=== PATIENT | male | born 1985 | race Caucasian/White ===

== ENCOUNTER 2025-03-16 19:27 | Emergency (ER) | payer BC, SELFPAY ==
[2025-03-16 20:25] VITALS: BP 139/87; PULSE 82; RESP 14; TEMP 36.7; O2SAT 99
[2025-03-16 23:20] VITALS: BP 138/85; PULSE 77; RESP 16; O2SAT 98
[2025-03-16] MEDS: FAMOTIDINE 20 MG TABLET PO (23:23)
[2025-03-16] MEDS: ONDANSETRON HCL ODT 4 MG TABLET PO (23:23)
[2025-03-16] MEDS: MECLIZINE HCL 25 MG TABLET PO (23:23)
[2025-03-16] MEDS: diazePAM INJ (*CRX) 10 MG/2 ML SYRINGE 5 MG IM (23:24)
[2025-03-16] MEDS: Please add drug allergy info to patient profile. 1 EACH XX (23:26)
[2025-03-16 23:29] VITALS: O2SAT 100
[2025-03-16 23:30] VITALS: O2SAT 99
[2025-03-16 23:31] VITALS: BP 122/87; O2SAT 97
[2025-03-16 23:46] VITALS: BP 132/97; O2SAT 96
[2025-03-17] VITALS: PULSE 80; RESP 14; O2SAT 96
[2025-03-17 00:01] VITALS: BP 111/67; PULSE 78; RESP 16; O2SAT 96
[2025-03-17 00:15] VITALS: PULSE 74; RESP 17; O2SAT 97
[2025-03-17 00:16] VITALS: BP 133/88; PULSE 78; RESP 20; O2SAT 96
--- OUTSIDE RECORDS SUMMARY | 2025-03-17 00:31 | XMS_ITS | Encounter Summary ---
Author Organization [facility] Address [facility] [place] [address] Care Team Providers Care Steel Spar Operator Name Role Phone Deana Block MD Primary Care Provider [phone] Encounter Details Date Type Department Care Team ([facility] Contact Info) Description 09/24/2022 Inflection Energyt Message Enc [facility] Medical [facility] Multispecialty Care - [address] [place], [place] [id number] Mychart, [facility] Provider Ubrelvy Social History Tobacco Use Types Packs/Day Years Used Date Smoking Tobacco: Never Smokeless Tobacco: Never Comments:Counseled by Dr Jeni escamilla Alcohol Use Standard Drinks/Week Comments Never 0 (1 standard drink = 0.6 oz pur e alcohol) PHQ-2 Answer Date Recorded PHQ-2 Score - If the patient scores above 3, please move on to questions 3-9 0 09/10/2022 Sex and Gender Information Value Date Recorded Sex Assigned at Male 02/22/2025 2:52 PM CDT Legal Sex Male 11:41 AM CDT Gender Identity Male 02/22/2025 2:52 PM CDT Sexual Orientation Choose not to disclose 2024 2:52 PM CDT COVID-19 Exposure Response Date Recorded In the last 10 days, have yo u been in contact with someone who was confirmed or suspected to have Coronavirus/COVID-19? No / Unsure 09/17/2022 10:37 AM INFORMATION TECHNOLOGY PROJECT MANAGER documented as of this encounter Plan of Treatment Upcoming Encounters Date Type Department Care Team ([facility] Contact Info) Description 05/24/2025 8:00 AM CDT Office Visit [facility] Medical Group Multispecialty Care - [place] [address] [place] [address] [address] [place] [address] Deana Block MD [address] [place] [address] documented as of this encounter Visit Diagnoses Not on filedocumented in this encounter Additional Health Concerns Assessment Noted Time PHQ-9 Depression Total Score: 12 022 2:34 PM CDT documented as of this encounter Care Teams Steel Spar Operator Relationship Specialty Start Date End Date Deana Block MD [address] [place] [address] PCP - General INTERNAL MEDICINE 03/23/22 documented as of this encounter
--- OUTSIDE RECORDS SUMMARY | 2025-03-17 00:31 | XMS_ITS | Encounter Summary ---
Author Organization [facility] Healthcare Address [address] [place] [address] Care Team Providers Care Outreach Assistant Name Role Phone Irwin Dominguez MD Primary Care Provider [phone] Reason for Visit * Reason Comments Vomiting Possible ear problem ? Encounter Details Date Type Department Care Team (Late st Contact Info) Description 03/16/2025 9:45 AM CDT Office Visit [facility] Medical Group Convenient Care at [address] [address] Tiffanie Epstein PA [address] [place] [address] [address] [place] [address] Dizziness (Primary Dx) Social History Tobacco Use Types Packs/Day Years Used Date Smoking Tobacco: Never Smokeless Tobacco: Never AUDIT-C Answer Date Recorded Q1: How often do you have a drink containing alc ohol? Never 10/22/2021 Average Number of Drinks Not on file 021 Q3: How often do you have si x or more drinks on one occasion? Never 10/22/2021 Overall Financial Resource Strain (CARDIA) Answe r Date Recorded How hard is it for you to pa y for the very basics like food, housing, medical care, and heating? Not hard at all 10/22/2021 PHQ-2 Answer Date Recorded PHQ-2 Total Score (If total score is 3 or more points, staff should administer the PHQ-9) 2 10/22/2021 Exercise Vital Sign Answer Date Recorde d On average, how many days pe r week do you engage in moderate to strenuous exercise (like a brisk walk)? 0 days Minutes of Exercise per Session Not on file 10/22/2021 Sex and Gender Information Value Date Recorded Sex Assigned at Not on file Legal Sex Male 8:49 PM FORENSIC PHOTOGRAPHER Gender Identity Not on file Sexual Orientation Not on file documented as of this encounter Last Filed Vital Signs Vital Sign Reading Time Taken Comments Blood Pressure 119/83 03/16/2025 9:39 AM CDT Pulse 68 03/16/2025 9:39 AM CDT Temperature 37 C (98.6 F) 03/16/2025 9:39 AM CDT Respiratory Rate 20 03/16/2025 9:39 AM CDT Oxygen Saturation 99% 03/16/2025 9:39 AM CDT Inhaled Oxygen Concentration - - Weight 124.3 kg (274 lb) 03/16/2025 9:39 AM CDT Height - - Body Mass Index 35.18 11/01/2023 3:52 PM FORENSIC PHOTOGRAPHER documented in this encounter Plan of Treatment Not on file documented as of this encounter Visit Diagnoses Diagnosis Dizziness- Primary Dizziness and giddiness documented in this encounter Historical Medications * This list may reflect changes made after this encounter. lisdexamfetamine (VYVANSE) 40 mg capsule Take 1 capsule (40 mg total) by mouth every morning 02/22/2025 added in this encounter Care Teams Outreach Assistant Relationship Specialty Start Date End Date Irwin Dominguez MD PCP - General Family Medicine 10/22/21 documented as of this encounter
--- OUTSIDE RECORDS SUMMARY | 2025-03-17 00:31 | XMS_ITS | Encounter Summary ---
Author Organization [facility] Address [facility] [place] [address] Care Team Providers Care Manager Federal Name Role Phone Deana Block MD Primary Care Provider [phone] Encounter Details Date Type Department Care Team (Latest Contact Info) Description 10/17/2022 MyChart Message Enc [facility] Medical Group Multispecialty Care - [place] [address] [facility] [address] [place] [address] Deana Block MD [address] [facility] [address] [place], [place] [phone] I've contracted covid Social History Tobacco Use Types Packs/Day Years [...] was confirmed or suspected to have Coronavirus/COVID-19? Yes 10/19/2022 8:05 AM ORDER FULFILLMENT SPECIALIST documented as of this encounter Functional Status * Calculated C-SSRS Risk Score (Lifetime/Recent) Answer Date of Assessment Author Status No Risk Indicated 10/19/2022 9:31 AM ORDER FULFILLMENT SPECIALIST Deana Block MD Active * [place] Suicide Severity Rating Scale (Screener/Recent Self-Report) Question Answer Date of Assessment Author Status 1. Wish to be (Past 1 Month) No 10/19/2022 9:31 AM ORDER FULFILLMENT SPECIALIST Deana Block MD Active 2. Non-Specific Active Suici mario alberto Thoughts (Past 1 Month) No 10/19/2022 9:31 AM ORDER FULFILLMENT SPECIALIST Deana Block MD Active 6. Suicidal Behavior (Lifetime) No 10/19/2022 9:31 AM ORDER FULFILLMENT SPECIALIST Deana Block MD Active documented as of this encounter Plan of Treatment Upcoming Encounters Date Type Department Care Team (Late st Contact Info) Description 05/24/2025 8:00 AM CDT Office Visit [facility] Medical Group Multispecialty [facility] - [place] [address] [address] [place] [address] Deana Block MD [address] [place] [address] documented as of this encounter Visit Diagnoses Not on filedocumented in this encounter Additional Health Concerns Assessment Noted Time PHQ-9 Depression Total Score: 12 022 2:34 PM CDT documented as of this encounter Care Teams Manager Federal Relationship Specialty Start Date End Date Deana Block MD [address] [place] [address] PCP - General INTERNAL MEDICINE 03/23/22 documented as of this encounter
--- OUTSIDE RECORDS SUMMARY | 2025-03-17 00:31 | XMS_ITS | Encounter Summary ---
Author Organization [facility] Address [facility] [place] [address] Care Team Providers Care Sheet Metal Supervisor Name Role Phone Deana Block MD Primary Care Provider [phone] Encounter Details Date Type Department Care Team ([facility] st Contact Info) Description 10/18/[address] LinPrim [address] [facility] Patient Accounts [address] [place] [address] [facility] Provider Monthly Credit Card Payment Social History Tobacco Use Types Packs/Day Years [...] to have Coronavirus/COVID-19? Yes 10/19/2022 8:05 AM DIRECTOR SPORTS documented as of this encounter Functional Status * Calculated C-SSRS Risk Score (Lifetime/Recent) Answer Date of Assessment Author Status No Risk Indicated 10/19/2022 9:31 AM DIRECTOR SPORTS Deana Block MD Active * [place] Suicide Severity Rating Scale (Screener/Recent Self-Report) Question Answer Date of Assessment Author Status 1. Wish to be (Past 1 Month) No 10/19/2022 9:31 AM Deana Howell MD Active 2. Non-Specific Active Suici mario alberto Thoughts (Past 1 Month) No 10/19/2022 9:31 AM Deana Howell MD Active 6. Suicidal Behavior (Lifetime) No 10/19/2022 9:31 AM Deana Howell MD Active documented as of this encounter Plan of Treatment Upcoming Encounters Date Type Department Care Team (Late st Contact Info) Description 05/24/2025 8:00 AM CDT Office Visit [facility] Medical Group Multispecialty Care - [place] [address] [address] [place] [address] [place] [address] [place] [address] [address] [place] [address] documented as of this encounter Visit Diagnoses Not on filedocumented in this encounter Additional Health Concerns Assessment Noted Time PHQ-9 Depression Total Score: 12 022 2:34 PM CDT documented as of this encounter Care Teams Sheet Metal Supervisor Relationship Specialty Start Date End Date Deana Block MD [address] [place] [address] [address] [place] [address] PCP - General INTERNAL MEDICINE 03/23/22 documented as of this encounter
--- OUTSIDE RECORDS SUMMARY | 2025-03-17 00:31 | XMS_ITS | Referral Summary ---
Author Organization [facility] [address] [facility] Address [address] [place] [address] Care Team Providers Care Slip Bridge Operator Name Role Phone Irwin Dominguez MD Primary Care Provider Encounters Date Type Department Care Team Description 03/16/2025 9:45 AM CDT Office Visit [facility] Medical Group Convenient Care at [address] [address] Tiffanie Epstein PA Dizziness (Primary Dx) from Last 3 Months Allergies Active Allergy Reactions Criticality Noted Date Comments Buspirone Unknown Medium 02/26/2019 Medications hydrOXYzine (VISTARIL) 50 mg capsuleIndicatio ns:anxiety Take 1 capsule (50 mg total) by mouth 3 (three) times a day as needed for anxiety 30 capsule 1 9 Active prazosin (MINIPRESS) 1 mg capsuleIndicatio ns:Post Traumatic Stress Disorder Take 1 capsule (1 mg total) by mouth nightly 30 capsule 1 9 Active traZODone (DESYREL) 100 mg tabletIndication s:insomnia associated with depression Take 1 tablet (100 mg total) by mouth nightly 30 tablet 1 9 Active ARIPiprazole (ABILIFY) 5 mg tablet 1 Active metoprolol XL (TOPROL-XL) 100 mg 24 hr tablet Take 1 tablet (100 mg total) by mouth daily 90 tablet 3 2 Active sertraline (ZOLOFT) 100 mg tabletIndication s:Post Traumatic Stress Disorder Take 1.5 tablets (150 mg total) by mouth daily 135 tablet 3 2 Active dextroamphetamin e-amphetamine XR (ADDERALL XR) 30 mg 24 hr capsuleIndicatio ns:PTSD (post-traumatic stress disorder) Take 1 capsule (30 mg total) by mouth every morning 30 capsule 2 Active Additional Information Patient not taking.Reported on 03/16/2025 topiramate (TOPAMAX) 25 mg tabletIndication s:Migraine with aura and without status migrainosus, not intractable Take 1 tablet (25 mg total) by mouth 2 (two) times a day 180 tablet 3 2 Active benzonatate (TESSALON) 200 mg capsuleIndicatio ns:Acute cough Take 1 capsule (200 mg total) by mouth 3 (three) times a day as needed for cough 30 capsule 4 Active Additional Information Patient not taking.Reported on 03/16/2025 lisdexamfetamine (VYVANSE) 40 mg capsule Take 1 capsule (40 mg total) by mouth every morning 5 Active Active Problems Problem Noted Date Diagnosed Date Encounter for medical examination to establish c are 10/22/2021 Assessment & Plan (10/27/2021 3:19 PM HIDES AND SKINS COLORER): A initial well visit to establish care has been performed today. Lalo Santiago is up to date on screening tests. He is in need of None- no screening indicated at this time- these have been ordered. He is not up to date on needed preventative vaccinations; He is in need of Tdap/Td and Covid-19 (booster). These have been ordered/arranged unless otherwise indicated. Topiramate trial. If it fails, it may make it easier to be approved for [facility] or similar again; if it works, it is good. continuing other regimen for now. BP is a little high today Discussed need for weight loss, likely would help the hyperhidrosis. Will consider a trial of Drysol. I am leaning towards this being resultant from the sertraline Labs pending Tobacco abuse 10/22/2021 Major depressive disorder, r ecurrent severe without psychotic features 01/22/2019 Assessment & Plan (04/05/2019 11:38 AM CDT): Laloconronues to exhibit signs and sxs of depression but is slowly improving. He actually came out of his room today and attended a group. Self-care is still poor. 1. Zoloft, Prazosin, Vyvance 2. SWer to meet with patient 3. Encourage ADLs and groups. 4. Increase Trazodone for insomnia Assessment & Plan (04/04/2019 9:11 AM CDT): Lalocontinues to exhibit signs and sxs of depression. 1. Zoloft, Prazosin, Vyvance 2. SWer to meet with patient 3. Encourage ADLs and groups. 4. Increase Trazodone for insomnia Assessment & Plan (04/03/2019 3:17 PM CDT): Lalo is going through a depressive episode in the context of losing a job he liked, his mother passing away, his brother disowning him over politics, and his cheating on him and being presented with a restraining order/becoming homeless. He had one suicide attempt last week that he did not tell anybody about and was feeling suicidal yesterday. He feels that the meds are helpful, but that he needs to be somewhere safe to get [my] head together . 1. Continue home meds of Zoloft, Prazosin, Vyvance 2. SWer to meet with patient 3. Encourage ADLs and groups. PTSD (post-traumatic stress disorder) 01/22/2019 Inguinal pain 07/26/2014 Impotence of organic origin 03/26/2014 Overview (02/10/2018): Description: s/p inflatable penile prosthesis 05/09/2014 Varicocele 06/21/2012 Overview (02/10/2018): Description: ligation done in [place] in 2001 Immunizations Immunization Administration Dates Next Due Influenza, Unspecified 10/22/2021(Deferr ed: Patient Refused),09/14/2020(Deferred: Patient Refused) Social History Tobacco Use Types Packs/Day Years [...] on file Legal Sex Male 8:49 PM HIDES AND SKINS COLORER Gender Identity Not on file Sexual Orientation Not on file Last Filed Vital Signs Vital Sign Reading Time Taken Comments Blood Pressure 119/83 03/16/2025 9:39 AM CDT Pulse 68 03/16/2025 9:39 AM CDT Temperature 37 C (98.6 F) 03/16/2025 9:39 AM CDT Respiratory Rate 20 03/16/2025 9:39 AM CDT Oxygen Saturation 99% 03/16/2025 9:39 AM CDT Inhaled Oxygen Concentration - - Weight 124.3 kg (274 lb) 03/16/2025 9:39 AM CDT Height 188 cm (6' 2 ) 11/01/2023 3:52 PM HIDES AND SKINS COLORER Body Mass Index 35.18 11/01/2023 3:52 PM HIDES AND SKINS COLORER Plan of Treatment Not on file Insurance [employer] [facility] [employer] [facility] [place] Advance Directives For more information, please contact: [phone] * Full Code (Latest Code Status on File) Date Activated Date Inactivated Comments 04/02/2019 3:38 PM 04/06/2019 5:00 PM Care Teams Slip Bridge Operator Relationship Specialty Start Date End Date Irwin Dominguez MD PCP - General Family Medicine 10/22/21
--- OUTSIDE RECORDS SUMMARY | 2025-03-17 00:31 | XMS_ITS | Clinical Summary ---
Author Organization [facility] [address] [facility] Address [address] [place] [address] Care Team Providers Care Sofa Inspector Name Role Phone Irwin Dominguez MD Primary Care Provider Allergies Active Allergy Reactions Criticality Noted Date [...] 10/22/2021 Assessment & Plan (10/27/2021 3:19 PM CLOTH SPREADER SCREEN PRINTING): A initial well visit to establish care [...] make it easier to be approved for [facility] or similar again; if it works, it [...] Assessment & Plan (04/05/2019 11:38 AM CDT): Kwanues to exhibit signs and sxs of depression [...] 06/21/2012 Overview (02/10/2018): Description: ligation done in [place] in 2001 Encounters Date Type Department Care Team Description 03/16/2025 9:45 AM CDT Office Visit [facility] Medical Group [facility] Care at [address] [address] Tiffanie Epstein PA Dizziness (Primary Dx) from Last 3 Months Immunizations Immunization Administration Dates Next Due Influenza, Unspecified 10/22/2021(Deferr ed: Patient Refused),09/14/2020(Deferred: Patient Refused) Surgical History Surgery Date Site/Laterality Comments VARICOCELECTOMY 10/31/1999 - 10/30/2000 PENILE PROSTHESIS IMPLANT 10/31/2013 - 10/30/2014 Medical History Medical History Date Comments Depression PTSD (post-traumatic stress disorder) Anxiety Migraine Generalized hyperhidrosis Adhd Family History Medical History Relation Name Comments Depression Brother 1 No Known Problems Brother 2 Mental illness Father psychopath Depression Mother Heart disease Mother Family history of cardiac disorder - (Added by TW Conv) Thyroid disease Mother Terese-Danlos syndrome Other Relation Name Status Comments Brother 1 Alive Brother 2 Alive Father Alive Mother Other Social History Tobacco Use Types Packs/Day Years [...] on file Legal Sex Male 8:49 PM CLOTH SPREADER SCREEN PRINTING Gender Identity Not on file Sexual Orientation Not on file Obstetrics History Last Filed Vital Signs Vital Sign Reading [...] cm (6' 2 ) 11/01/2023 3:52 PM CLOTH SPREADER SCREEN PRINTING Body Mass Index 35.18 11/01/2023 3:52 PM CLOTH SPREADER SCREEN PRINTING Plan of Treatment Health Maintenance Due Date Last Done Comments Hepatitis C Screening 1987 Hepatitis B Screening 2005 Depression Screening 10/22/2022 10/22/2021, 10/22/2021 Regular Well Visit/Exam 18-64 10/22/2022 10/22/2021 Covid-19 Vaccine ( season) 2024 02/17/2021, 01/27/2021 DTaP/Tdap/Td Vaccine (2 - Td or Tdap) 05/04/2032 05/04/2022 Influenza Vaccine Completed 08/17/2024, 09/10/2022 HPV Vaccines Aged Out No longer eligi ble based on patient's age to complete this topic Pneumococcal vaccine <65 Aged Out No longer eligible based on patient's age to complete this topic Varicella Vaccines Discontinued Insurance [facility] [facility] [facility] BL [place] Advance Directives For more information, please contact: [phone] * Full Code (Latest Code Status on File) Date Activated Date Inactivated Comments 04/02/2019 3:38 PM 04/06/2019 5:00 PM Care Teams Sofa Inspector Relationship Specialty Start Date End Date Irwin Dominguez MD PCP - General Family Medicine 10/22/21
--- OUTSIDE RECORDS SUMMARY | 2025-03-17 00:31 | XMS_ITS | Encounter Summary ---
Author Organization [facility] Address [facility] [place] [address] Care Team Providers Care Press Maintainer Name Role Phone Deana Block MD Primary Care Provider [phone] Encounter Details Date Type Department Care Team (Latest Contact Info) Description 05/29/2022 MyChart Message Enc [facility] Medical Group Multispecialty Care - [place] [address] [facility] [address] [place] [address] Deana Block MD [address] [facility] [address] [place], [place] [id number] Weird, sudden skintags? Social History Tobacco Use Types Packs/Day Years Used Date Smoking Tobacco: Never Smokeless Tobacco: Never Comments:Counseled by Dr Jeni escamilla Alcohol Use Standard Drinks/Week Comments Never 0 (1 standard drink = 0.6 oz pur e alcohol) PHQ-2 Answer Date Recorded PHQ-2 Score - If the patient scores above 3, please move on to questions 3-9 2 05/04/2022 Sex and Gender Information Value Date Recorded [...] suspected to have Coronavirus/COVID-19? No / Unsure 05/04/2022 1:20 PM CDT documented as of this encounter Plan of Treatment Upcoming Encounters Date Type Department Care Team (Late st Contact Info) Description 05/24/2025 8:00 AM CDT Office Visit [facility] Medical Group Multispecialty Care - [place] [address] [address] [place] [address] Deana Block MD [address] [place] [address] documented as of this encounter Visit Diagnoses Not on filedocumented in this encounter Additional Health Concerns Assessment Noted Time PHQ-9 Depression Total Score: 12 022 2:34 PM CDT documented as of this encounter Care Teams Press Maintainer Relationship Specialty Start Date End Date Deana Block MD [address] [place] [address] PCP - General INTERNAL MEDICINE 03/23/22 documented as of this encounter
--- OUTSIDE RECORDS SUMMARY | 2025-03-17 00:32 | XMS_ITS | Clinical Summary ---
Author Organization [facility] Address [address] [place] [address] Care Team Providers Care Rivet Tester Name Role Phone Deana Block MD Primary Care Provider [phone] Allergies No known active allergies Medications cyclobenzaprine (FLEXERIL) 5 MG tabletIndications: Right-sided chest pain Take 1 tablet (5 mg total) by mouth nightly as needed. 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 60 tablet 6 11/23/19 25 Active tadalafil (CIALIS) 20 MG tabletIndications: Decreased libido,Erectile dysfunction, unspecified erectile dysfunction type Take 1 tablet (20 mg total) by mouth nightly as needed for Erectile Dysfunction. 10 tablet 2 11/23/19 25 Active sertraline (ZOLOFT) 100 MG tabletIndications: Major depressive disorder, recurrent severe without psychotic features (CMS/HCC HHS/HCC),MALKA (generalized anxiety disorder) Take 2 tablets (200 mg total) by mouth daily. 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 May repeat in 2 hours if needed times one dose 10 tablet 4 11/23/19 25 Active prazosin (MINIPRESS) 1 MG capsuleIndications :Night terror disorder Take 1 capsule (1 mg total) by mouth nightly at bedtime. 90 capsule 1 11/23/19 25 Active metoprolol succinate ER (TOPROL-XL) 100 MG 24 hr tabletIndications: Sinus tachycardia Take 1 tablet (100 mg total) by mouth daily. 90 tablet 1 11/23/19 25 Active atorvastatin (LIPITOR) 40 MG tabletIndications: Mixed hyperlipidemia Take 1 tablet (40 mg total) by mouth nightly at bedtime. 90 tablet 2 11/23/19 25 Active ARIPiprazole (ABILIFY) 5 MG tabletIndications: Major depressive disorder, recurrent severe without psychotic features ([facility] HHS/HCC) Take 1 tablet (5 mg total) by mouth daily. for 30 days 90 tablet 1 11/23/19 25 Active aluminum chloride (DRYSOL) 20 % external solutionIndication s:Hyperhidrosis Apply topically nightly at bedtime. 60 mL 3 11/23/19 25 Active lisdexamfetamine (VYVANSE) 40 MG capsuleIndications :Attention deficit hyperactivity disorder (ADHD), predominantly inattentive type Take 1 capsule (40 mg total) by mouth every morning. 30 capsule 02/23/20 25 Active lisdexamfetamine (VYVANSE) 40 MG capsuleIndications :Attention deficit hyperactivity disorder (ADHD), predominantly inattentive type Take 1 capsule (40 mg total) by mouth every morning. 30 capsule 01/22/20 25 025 Discontin ued(Reord er) Active Problems Problem Noted Date Diagnosed Date LIS (obstructive sleep apnea) 03/22/2023 Overview (03/22/2023): Mild LIS from sleep study done February 2023. ADD (attention deficit disorder) 05/04/2022 Mixed hyperlipidemia 03/24/2022 MALKA (generalized anxiety disorder) 03/23/2022 Hyperhidrosis 03/23/2022 Sinus tachycardia 03/23/2022 Migraine headache 03/23/2022 Major depressive disorder, r ecurrent severe without psychotic features ([facility] HHS/HCC) 01/22/2019 Overview (03/23/2022): Last Assessment & Plan: Brandoncontinues to exhibit signs and sxs of depression but is slowly improving. He actually came out of his room today and attended a group. Self-care is still poor. 1. Zoloft, Prazosin, Vyvance 2. SWer to meet with patient 3. Encourage ADLs and groups. 4. Increase Trazodone for insomnia Impotence of organic origin 03/26/2014 Overview (03/23/2022): Description: s/p inflatable penile prosthesis 05/09/2014 Varicocele 06/21/2012 Overview (03/23/2022): Description: ligation done in [place] in 2001 Encounters Date Type Department Care Team Description 02/22/2025 2:40 PM CDT [facility] [address] [place] [address] Deana Block MD Follow Up; Attention Deficit Disorder 02/22/2025 Travel 01/07/2025 MyChart Message Enc [facility] [address] [place] [address] Deana Block MD Inflamed Stretchmark On Leg? from Last 3 Months Immunizations Immunization Administration Dates Next Due Fluzone (IIV3, Trivalent, 0.5 ML Prefilled Syrin ge) 08/17/2024 Fluzone 6 Months+ Quad (0.5 mL Prefilled Syringe ) 09/10/2022 PFIZER COVID-19 (ORIGINAL FO RMULATION, PURPLE CAP) mRNA, LNP-S, PF, 30 MCG/0.3 ML DOSE 02/17/2021,01/27/2021 Tdap (Adacel) 05/04/2022 Family History Medical History Relation Comments Depression Brother Terese-Danlos syndrome Brother Addiction problem Father Terese-Danlos syndrome Father Alzheimers Maternal Grandmother Diabetes Mother Hypertension Mother Lymphoma Mother Relation Status Comments Brother Alive Father Alive Maternal Grandmother Mother Paternal Grandmother Social History Tobacco Use Types Packs/Day Years Used Date Smoking Tobacco: Never Smokeless Tobacco: Never Tobacco Cessation:Counseling Given: Yes Comments:Counseled by Dr Block Alcohol Use Standard Drinks/Week Comments Never 0 (1 standard drink = 0.6 oz pur e alcohol) PHQ-2 Answer Date Recorded Patient Health Questionnaire-2 Score 1 11/23/2024 Sex and Gender Information Value Date Recorded Sex Assigned at Male 02/22/2025 2:52 PM CDT Legal Sex Male 11:41 AM CDT Gender Identity Male 02/22/2025 2:52 PM CDT Sexual Orientation Choose not to disclose 2024 2:52 PM CDT Last Filed Vital Signs Vital Sign Reading Time Taken Comments Blood Pressure 117/75 02/22/2025 2:52 PM CDT Pulse 90 02/22/2025 2:52 PM CDT Temperature 35.5 C (95.9 F) 02/22/2025 2:52 PM CDT Respiratory Rate 14 02/22/2025 2:52 PM CDT Oxygen Saturation 96% 02/22/2025 2:52 PM CDT Inhaled Oxygen Concentration - - Weight 129.7 kg (286 lb) 02/22/2025 2:52 PM CDT Height 188 cm (6' 2 ) 02/22/2025 2:52 PM CDT Body Mass Index 36.72 02/22/2025 2:52 PM CDT Plan of Treatment Upcoming Encounters Date Type Department Care Team (Late st Contact Info) Description 05/24/2025 8:00 AM CDT Office Visit [facility] [place] [address] [address] [place] [address] Deana Block MD [address] [place] [address] Health Maintenance Due Date Last Done Comments Hepatitis B Vaccines (1 of 3 - 19+ 3-dose series) 2006 COVID-19 Vaccine (2023-2 5 season) 2024 02/17/2021, 01/27/2021 Annual Physical 11/23/2025 11/23/2024, 11/23/2023, 03/23/2022 DTaP, Tdap and Td Vaccines ( 2 - Td or Tdap) 05/04/2032 05/04/2022 Hepatitis C Completed 03/23/2022 PHQ-2 (Physician Resighini) Completed 11/23/2024 HPV Vaccines Aged Out No longer eligi ble based on patient's age to complete this topic Meningococcal B Vaccine Aged Out No l onger eligible based on patient's age to complete this topic Meningococcal Vaccine Aged Out No chika katy eligible based on patient's age to complete this topic Pneumococcal Vaccine: Pediatrics (0 to 5 Years) and At-Risk Patients (6 to 49 Years) Aged Out No longer eligible b ased on patient's age to complete this topic RSV Immunizations Under 20 Months Aged Out No longer eligible b ased on patient's age to complete this topic Procedures Procedure Name Priority Date/Time Associated Diagnosis Comments HEPATITIS C ANTIBODY Routine 03/23/2022 2:29 PM CDT Annual physical exam Encounter for medical examination to establish care General medical exam Encounter for hepatitis C screening test for low risk patient from Last 3 Months or Most Recently Relevant to Health Maintenance Results * HEPATITIS C ANTIBODY (03/23/2022 2:29 PM CDT) HEPATITIS C AB NON-REACTI VE NON-REACT [place] 03/23/2022 9:47 PM CDT [facility] Comment: ANTIBODIES TO HCV NOT DETECTED. DOES NOT EXCLUDE THE POSSIBILITY OF EXPOSURE TO HCV. 03/23/2022 2:29 PM CDT Deana Block MD LABORATORY Final Result [facility] [address] [place] [address], [id number] from Last 3 Months or Most Recently Relevant to Health Maintenance Insurance [employer] Care Teams Rivet Tester Relationship Specialty Start Date End Date Deana Block MD [address] [facility] [address] [place] [address] PCP - General INTERNAL MEDICINE 03/23/22
--- OUTSIDE RECORDS SUMMARY | 2025-03-17 00:32 | XMS_ITS | Encounter Summary ---
Author Organization [facility] Address [facility] [place] [address] Care Team Providers Care Liner Assembler Name Role Phone Deana Block MD Primary Care Provider [phone] Encounter Details Date Type Department Care Team (Latest Contact Info) Description 06/19/2023 [facility] [place] [address] Deana Block MD [address] [place] [address] [address] [place], [place] [phone] What are the odds I have asthma..? Social History Tobacco Use Types Packs/Day Years Used Date Smoking Tobacco: Never Smokeless Tobacco: Never Comments:Counseled by Dr Jeni escamilla Alcohol Use Standard Drinks/Week Comments Never 0 (1 standard drink = 0.6 oz pur e alcohol) PHQ-2 Answer Date Recorded Patient Health Questionnaire-2 Score 0 03/07/2023 Sex and Gender Information Value Date Recorded Sex Assigned at Male 02/22/2025 2:52 PM CDT Legal Sex Male 11:41 AM CDT Gender Identity Male 02/22/2025 2:52 PM CDT Sexual Orientation Choose not to disclose 2024 2:52 PM CDT documented as of this encounter Plan of Treatment Upcoming Encounters Date Type Department Care Team (Late st Contact Info) Description 05/24/2025 8:00 AM CDT [facility] [place] [address] Deana Block MD [address] [facility] 157 [place] [address] documented as of this encounter Visit Diagnoses Not on filedocumented in this encounter Additional Health Concerns Assessment Noted Time PHQ-9 Depression Total Score: 12 022 2:34 PM CDT documented as of this encounter Care Teams Liner Assembler Relationship Specialty Start Date End Date Deana Block MD [address] [facility] [address] [place] [address] PCP - General INTERNAL MEDICINE 03/23/22 documented as of this encounter
--- OUTSIDE RECORDS SUMMARY | 2025-03-17 00:32 | XMS_ITS | Encounter Summary ---
Author Organization [facility] Address [facility] [place] [address] Care Team Providers Care Patent Examiner Name Role Phone Deana Block MD Primary Care Provider [phone] Encounter Details Date Type Department Care Team (Latest Contact Info) Description 08/17/2023 [facility] [address] [place] [address] Deana Block MD [address] [place] [address] 157 [place], [place] [phone] Something amiss with the yolanda? Social History Tobacco Use Types Packs/Day Years [...] Description 05/24/2025 8:00 AM CDT [facility] [address] [place] [address] Deana Block MD 118[address] [facility] 157 [place] [address] documented as of this encounter Visit Diagnoses Not on filedocumented in this encounter Additional Health Concerns Assessment Noted Time PHQ-9 Depression Total Score: 12 022 2:34 PM CDT documented as of this encounter Care Teams Patent Examiner Relationship Specialty Start Date End Date Deana Block MD 1188 [facility] 157 [place] [address] PCP - General INTERNAL MEDICINE 03/23/22 documented as of this encounter
--- OUTSIDE RECORDS SUMMARY | 2025-03-17 00:32 | XMS_ITS | Encounter Summary ---
Author Organization [facility] [place] [facility] Address [facility] [place] [address] Care Team Providers Care Special Crimes Investigator Name Role Phone Deana Block MD Primary Care Provider [phone] Encounter Details Date Type Department Care Team (Latest Contact Info) Description 06/07/2023 MyChart Message Enc [place] [address] [address] [address] [place] [address] Deana Block MD [address] [place] [phone] Julieta is.. unhappy..? Pained? Social History Tobacco Use Types Packs/Day Years [...] Description 05/24/2025 8:00 AM CDT Office Visit [address] [place] [address] Deana Block MD [address] [address] documented as of this encounter Visit Diagnoses Not on filedocumented in this encounter Additional Health Concerns Assessment Noted Time PHQ-9 Depression Total Score: 12 022 2:34 PM CDT documented as of this encounter Care Teams Special Crimes Investigator Relationship Specialty Start Date End Date Deana Block MD [address] [address] PCP - General INTERNAL MEDICINE 03/23/22 documented as of this encounter
--- OUTSIDE RECORDS SUMMARY | 2025-03-17 00:32 | XMS_ITS | Encounter Summary ---
Author Organization [facility] Address [facility] [place] [address] Care Team Providers Care Corporate Physical Security Supervisor Name Role Phone Deana Block MD Primary Care Provider [phone] Encounter Details Date Type Department Care Team (Latest Contact Info) Description 10/26/2022 MyChart Message Enc [facility] Care [place] [address] [facility] [address] [place] [address] Deana Block MD [address] [facility] [address] [place], [place] [phone] Got a hemorrhoid. Ow. Social History Tobacco Use Types Packs/Day Years [...] to have Coronavirus/COVID-19? Yes 10/19/2022 8:05 AM REPAIRING CALIBRATOR documented as of this encounter Plan of Treatment Upcoming Encounters Date Type Department Care Team (Late st Contact Info) Description 05/24/2025 8:00 AM CDT Office Visit [facility] Mult[facility] Care - [place] [address] [address] [place] [address] Deana Block MD [address] [place] [address] documented as of this encounter Visit Diagnoses Not on filedocumented in this encounter Additional Health Concerns Assessment Noted Time PHQ-9 Depression Total Score: 12 022 2:34 PM CDT documented as of this encounter Care Teams Corporate Physical Security Supervisor Relationship Specialty Start Date End Date Deana Block MD [address] [place] [address] PCP - General INTERNAL MEDICINE 03/23/22 documented as of this encounter
--- OUTSIDE RECORDS SUMMARY | 2025-03-17 00:32 | XMS_ITS | Encounter Summary ---
Author Organization [facility] Address Replaced by [facility] [place] [address] Care Team Providers Care Cashier Name Role Phone Deana Block MD Primary Care Provider [phone] Encounter Details Date Type Department Care Team (Latest Contact Info) Description 12/02/2022 MyChart Message Enc [facility] Mult[facility]pecialty Care - [place] [address] [facility] [address] [place] [address] Deana Block MD [address] [facility] [address] [place], [place] [phone] Ma'am, I need your thoughts Social History Tobacco Use Types Packs/Day Years [...] suspected to have Coronavirus/COVID-19? No / Unsure 11/10/2022 3:46 PM FORENSIC PSYCHIATRIST documented as of this encounter Plan of Treatment Upcoming Encounters Date Type Department Care Team (Late st Contact Info) Description 05/24/2025 8:00 AM CDT Office Visit [facility] Mult[facility]pecialty Care - [place] [address] [address] [place] [address] Deana Block MD [address] [place] [address] documented as of this encounter Visit Diagnoses Not on filedocumented in this encounter Additional Health Concerns Assessment Noted Time PHQ-9 Depression Total Score: 12 022 2:34 PM CDT documented as of this encounter Care Teams Cashier Relationship Specialty Start Date End Date Deana Block MD [address] [place] [address] PCP - General INTERNAL MEDICINE 03/23/22 documented as of this encounter
--- OUTSIDE RECORDS SUMMARY | 2025-03-17 00:32 | XMS_ITS | Encounter Summary ---
Author Organization [facility] Address [facility] [place] [address] Care Team Providers Care Machine Precision Etcher Name Role Phone Deana Block MD Primary Care Provider [phone] Encounter Details Date Type Department Care Team (Latest Contact Info) Description 11/17/2023 [facility] Message Enc [facility] [place] [address] [address] [place] [address] Joaquín [facility] Provider Control Substance Agreement Social History Tobacco Use Types Packs/Day Years [...] Description 05/24/2025 8:00 AM CDT [facility] [place] [address] Deana Block MD [address] [place] [address] 157 [place] [address] documented as of this encounter Visit Diagnoses Not on filedocumented in this encounter Additional Health Concerns Assessment Noted Time PHQ-9 Depression Total Score: 12 022 2:34 PM CDT documented as of this encounter Care Teams Machine Precision Etcher Relationship Specialty Start Date End Date Deana Block MD [facility] [address] [address] PCP - General INTERNAL MEDICINE 03/23/22 documented as of this encounter
--- OUTSIDE RECORDS SUMMARY | 2025-03-17 00:32 | XMS_ITS | Encounter Summary ---
Author Organization [facility] Address [facility]6 [place] [address] Care Team Providers Care Air Intercept Controller Name Role Phone Deana Block MD Primary Care Provider [phone] Encounter Details Date Type Department Care Team (Latest Contact Info) Description 06/04/2023 MyChart Message Enc [place] [address] [address] [place] [address] Deana Block MD [address] [place] [phone] Swollen neck lymph node and tonsil? Social History Tobacco Use Types Packs/Day Years [...] Description 05/24/2025 8:00 AM CDT Office Visit [address] [place] [address] Deana Block MD [address] [address] documented as of this encounter Visit Diagnoses Not on filedocumented in this encounter Additional Health Concerns Assessment Noted Time PHQ-9 Depression Total Score: 12 022 2:34 PM CDT documented as of this encounter Care Teams Air Intercept Controller Relationship Specialty Start Date End Date Deana Block MD [address] [address] PCP - General INTERNAL MEDICINE 03/23/22 documented as of this encounter
--- OUTSIDE RECORDS SUMMARY | 2025-03-17 00:32 | XMS_ITS | Encounter Summary ---
Author Organization [facility] [place] [facility] Address [facility] [place] [address] Care Team Providers Care Fishing Floats Assembler Name Role Phone Deana Block MD Primary Care Provider [phone] Encounter Details Date Type Department Care Team (Latest Contact Info) Description 07/29/2022 MyChart Message Enc [facility] [place] [facility] [address] [place] [address] [address] [place] [address] Deana Block MD [address] [facility] [address] [place], [place] [phone] Requesting a referral to [facility] Social History Tobacco Use Types Packs/Day Years Used Date Smoking Tobacco: Never Smokeless Tobacco: Never Comments:Counseled by Dr Jeni escamilla Alcohol Use Standard Drinks/Week Comments Never 0 (1 standard drink = 0.6 oz pur e alcohol) PHQ-2 Answer Date Recorded PHQ-2 Score - If the patient scores above 3, please move on to questions 3-9 1 06/04/2022 Sex and Gender Information Value Date Recorded Sex Assigned at Male 02/22/2025 2:52 PM CDT Legal Sex Male 11:41 AM CDT Gender Identity Male 02/22/2025 2:52 PM CDT Sexual Orientation Choose not to disclose 2024 2:52 PM CDT documented as of this encounter Plan of Treatment Upcoming Encounters Date Type Department Care Team ( Contact Info) Description 05/24/2025 8:00 AM CDT Office Visit [facility] - [place] [address] [address] [place] [address] Deana Block MD [address] [place] [phone] documented as of this encounter Visit Diagnoses Not on filedocumented in this encounter Additional Health Concerns Assessment Noted Time PHQ-9 Depression Total Score: 12 022 2:34 PM CDT documented as of this encounter Care Teams Fishing Floats Assembler Relationship Specialty Start Date End Date Deana Block MD [address] [place] [phone] PCP - General INTERNAL MEDICINE 03/23/22 documented as of this encounter
--- OUTSIDE RECORDS SUMMARY | 2025-03-17 00:32 | XMS_ITS | Encounter Summary ---
Author Organization [facility] Address [facility]6 [place] [address] Care Team Providers Care Incendiaries Supervisor Name Role Phone Deana Block MD Primary Care Provider [phone] Encounter Details Date Type Department Care Team (Latest Contact Info) Description 01/07/2025 MyChart Message Enc [facility] [address] [place], [place] [phone] Deana Block MD [address] [place] [address] 157 [place], [place] [phone] Inflamed Stretchmark On Leg? Social History Tobacco Use Types Packs/Day Years [...] Encounters Date Type Department Care Team ( st Contact Info) Description 05/24/2025 8:00 AM CDT [facility] [address] [place] [address] Deana Block MD [address] [address] documented as of this encounter Visit Diagnoses Not on filedocumented in this encounter Additional Health Concerns Assessment Noted Time PHQ-9 Depression Total Score: 4 11/23/19 25 9:24 AM GRADE RECORDER documented as of this encounter Care Teams Incendiaries Supervisor Relationship Specialty Start Date End Date Deana Block MD [address] [address] PCP - General INTERNAL MEDICINE 03/23/22 documented as of this encounter
--- OUTSIDE RECORDS SUMMARY | 2025-03-17 00:32 | XMS_ITS | Encounter Summary ---
Author Organization [facility] Address [facility]6 [place] [address] Care Team Providers Care Electric Wheelchair Repairer Name Role Phone Deana Block MD Primary Care Provider [phone] Encounter Details Date Type Department Care Team (Latest Contact Info) Description 05/14/2023 MyChart Message Enc [address] [place] [address] Deana Block MD [address] [place] [address] 157 [place], [place] [phone] Ma'am, Julieta's mom has passed Social History Tobacco Use Types Packs/Day Years [...] Description 05/24/2025 8:00 AM CDT Office Visit [address] [place] [address] Deana Block MD 1188 [facility] 157 [place] [address] documented as of this encounter Visit Diagnoses Not on filedocumented in this encounter Additional Health Concerns Assessment Noted Time PHQ-9 Depression Total Score: 12 022 2:34 PM CDT documented as of this encounter Care Teams Electric Wheelchair Repairer Relationship Specialty Start Date End Date Deana Block MD 1188 [facility] 157 [place] [address] PCP - General INTERNAL MEDICINE 03/23/22 documented as of this encounter
--- OUTSIDE RECORDS SUMMARY | 2025-03-17 00:32 | XMS_ITS | Encounter Summary ---
Author Organization [facility] Address Counts include 234 beds at the [facility] [place] [address] Care Team Providers Care Inspecting Supervisor Name Role Phone Deana Block MD Primary Care Provider [phone] Encounter Details Date Type Department Care Team (Late Contact Info) Description 12/05/2023 etaskrt Message Enc [facility] - [address] [place] [address] Joaquín, [facility] Provider Ubrelvy Social History Tobacco Use Types Packs/Day Years Used Date Smoking Tobacco: Never Smokeless Tobacco: Never Comments:Counseled by Dr Jeni escamilla Alcohol Use Standard Drinks/Week Comments Never 0 (1 standard drink = 0.6 oz pur e alcohol) PHQ-2 Answer Date Recorded Patient Health Questionnaire-2 Score 2 11/23/2023 Sex and Gender Information Value Date Recorded Sex Assigned at Male 02/22/2025 2:52 PM CDT Legal Sex Male 11:41 AM CDT Gender Identity Male 02/22/2025 2:52 PM CDT Sexual Orientation Choose not to disclose 2024 2:52 PM CDT documented as of this encounter Plan of Treatment Upcoming Encounters Date Type Department Care Team (Late Contact Info) Description 05/24/2025 8:00 AM CDT [facility] [address] [place] [address] Deana Block MD [address] [place] [address] [address] [place] [address] documented as of this encounter Visit Diagnoses Not on filedocumented in this encounter Additional Health Concerns Assessment Noted Time PHQ-9 Depression Total Score: 13 024 1:28 PM CONSTRUCTION SERVICES TECHNICIAN documented as of this encounter Care Teams Inspecting Supervisor Relationship Specialty Start Date End Date Deana Block MD [facility] [address] [address] PCP - General INTERNAL MEDICINE 03/23/22 documented as of this encounter
--- OUTSIDE RECORDS SUMMARY | 2025-03-17 00:32 | XMS_ITS | Encounter Summary ---
Author Organization [facility] Address [facility] [place] [address] Care Team Providers Care Linen Supply Load Builder Name Role Phone Deana Block MD Primary Care Provider [phone] Encounter Details Date Type Department Care Team (Late Contact Info) Description 12/23/2023 MyChart Message Enc [facility] Medical [facility] Mult[facility]pec[facility] - [address] [place], [place] [id number] Deana Block MD [address] [place] [address] [address] [place], [place] [id number] COVID Exposure Social History Tobacco Use Types Packs/Day Years [...] Description 05/24/2025 8:00 AM CDT Office Visit [facility] Medical [facility] - [address] [place], [place] [id number] Deana Block MD [address] [address] documented as of this encounter Visit Diagnoses Not on filedocumented in this encounter Additional Health Concerns Assessment Noted Time PHQ-9 Depression Total Score: 13 024 1:28 PM MANAGER ENGAGEMENT documented as of this encounter Care Teams Linen Supply Load Builder Relationship Specialty Start Date End Date Deana Block MD [address] [id number] PCP - General INTERNAL MEDICINE 03/23/22 documented as of this encounter
--- OUTSIDE RECORDS SUMMARY | 2025-03-17 00:32 | XMS_ITS | Encounter Summary ---
Author Organization [facility] [place] Address [facility] [place] [address] Care Team Providers Care Case Picker Name Role Phone Deana Block MD Primary Care Provider [phone] Encounter Details Date Type Department Care Team (Latest Contact Info) Description 01/07/2023 Exosecthart [facility] [address] [facility] [address] [place], [place] [id number] Deana Block MD [address] [facility] [address] [place], [place] [id number] Prashant hasn't stocked Adderall in two weeks Social History Tobacco Use Types Packs/Day Years [...] Visit [facility] Care - [address] [place] [address] Deana Block MD [address] [place] [address] documented as of this encounter Visit Diagnoses Not on filedocumented in this encounter Additional Health Concerns Assessment Noted Time PHQ-9 Depression Total Score: 12 022 2:34 PM CDT documented as of this encounter Care Teams Case Picker Relationship Specialty Start Date End Date Deana Block MD [address] [place] [address] PCP - General INTERNAL MEDICINE 03/23/22 documented as of this encounter
--- OUTSIDE RECORDS SUMMARY | 2025-03-17 00:32 | XMS_ITS | Encounter Summary ---
Author Organization [facility] Address [facility] [place] [address] Care Team Providers Care Business Development Representative Name Role Phone Deana Block MD Primary Care Provider [phone] Encounter Details Date Type Department Care Team (Late st Contact Info) Description 05/10/2022 MyChart Message Enc [facility] Mult[facility]pecialty Care - [place] [address] [place] [address] [address] [place] [address] Deana Block MD [address] [facility] [address] [place], [place] [id number] Emgality. Social History Tobacco Use Types Packs/Day Years [...] Description 05/24/2025 8:00 AM CDT Office Visit [facility] Mult[facility]pecialty Care - [place] [address] [address] [place] [address] Deana Block MD [address] [place] [address] documented as of this encounter Visit Diagnoses Not on filedocumented in this encounter Additional Health Concerns Assessment Noted Time PHQ-9 Depression Total Score: 12 022 2:34 PM CDT documented as of this encounter Care Teams Business Development Representative Relationship Specialty Start Date End Date Deana Block MD [address] [place] [id number] PCP - General INTERNAL MEDICINE 03/23/22 documented as of this encounter
--- OUTSIDE RECORDS SUMMARY | 2025-03-17 00:32 | XMS_ITS | Encounter Summary ---
Author Organization [facility] Address [facility] [place] [address] Care Team Providers Care County Adviser Name Role Phone Deana Block MD Primary Care Provider [phone] Encounter Details Date Type Department Care Team (Latest Contact Info) Description 09/15/2022 MyChart Message Enc [facility] Multispecialty Care - [place] [address] [facility] [address] [place] [address] Deana Block MD [address] [facility] [address] [place], [place] [phone] Migraine medication Social History Tobacco Use Types Packs/Day Years [...] Coronavirus/COVID-19? No / Unsure 09/17/2022 10:37 AM EQUAL OPPORTUNITY COUNSELOR documented as of this encounter Plan of Treatment Upcoming Encounters Date Type Department Care Team (Late st Contact Info) Description 05/24/2025 8:00 AM CDT Office Visit [facility] Multispecialty Care - [place] [address] [address] [place] [address] Deana Block MD [address] [place] [address] documented as of this encounter Visit Diagnoses Not on filedocumented in this encounter Additional Health Concerns Assessment Noted Time PHQ-9 Depression Total Score: 12 022 2:34 PM CDT documented as of this encounter Care Teams County Adviser Relationship Specialty Start Date End Date Deana Block MD [address] [place] [address] PCP - General INTERNAL MEDICINE 03/23/22 documented as of this encounter
--- OUTSIDE RECORDS SUMMARY | 2025-03-17 00:32 | XMS_ITS | Encounter Summary ---
Author Organization [facility] Address [facility] [place] [address] Care Team Providers Care Drainlayer Name Role Phone Deana Block MD Primary Care Provider [phone] Encounter Details Date Type Department Care Team (Latest Contact Info) Description 02/14/2023 MyChart Message Enc [facility] Multispecialty Care - [place] 1188 [facility] [address] [place] [address] Deana Block MD [address] [facility] [address] [place], [place] [phone] My.. right side under my rib hurts..? Social History Tobacco Use Types Packs/Day Years Used Date Smoking Tobacco: Never Smokeless Tobacco: Never Comments:Counseled by Dr Jeni escamilla Alcohol Use Standard Drinks/Week Comments Never 0 (1 standard drink = 0.6 oz pur e alcohol) PHQ-2 Answer Date Recorded Patient Health Questionnaire-2 Score 0 01/31/2023 Sex and Gender Information Value Date Recorded [...] suspected to have Coronavirus/COVID-19? No / Unsure 02/15/2023 11:22 AM CDT documented as of this encounter Functional Status * Calculated C-SSRS Risk Score (Lifetime/Recent) Answer Date of Assessment Author Status No Risk Indicated 02/15/2023 11:20 AM CDT Rachael Maza RN Active * [place] Suicide Severity Rating Scale (Screener/Recent Self-Report) Question Answer Date of Assessment Author Status 1. Wish to be (Past 1 Month) No 02/15/2023 11:20 AM CDT Rachael Maza RN Active 2. Non-Specific Active Suicidal Thoughts (Past 1 Month) No 02/15/2023 11:20 AM CDT Rachael Maaz RN Active 6. Suicidal Behavior (Lifetime) No 02/15/2023 11:20 AM CDT Rachael Maza RN Active documented as of this encounter Plan of Treatment Upcoming Encounters Date Type Department Care Team (Late st Contact Info) Description 05/24/2025 8:00 AM CDT Office Visit [facility] Medical Group Multispecialty [facility] - [place] [address] [address] [place] [address] Deana Block MD [address] [place] [address] documented as of this encounter Visit Diagnoses Not on filedocumented in this encounter Additional Health Concerns Assessment Noted Time PHQ-9 Depression Total Score: 12 022 2:34 PM CDT documented as of this encounter Care Teams Drainlayer Relationship Specialty Start Date End Date Deana Block MD [address] [place] [address] PCP - General INTERNAL MEDICINE 03/23/22 documented as of this encounter
--- NOTE | 2025-03-17 00:48 | ED.NAVMDI ---
HPI - Nausea/Vomiting/Diarrhea General Chief complaint: Nausea/Vomiting/Diarrhea Stated complaint: vertigo, n/v Time Seen by Provider: 03/16/25 22:49 History of Present Illness HPI Narrative: Patient here with vertigo that started this morning; associated with nausea/vomiting. Only in certain head positions at which point he will feel his eyes wiggling around. Feels like the whole room is spinning around him. No recent trauma, ear infections, headache. Related Data Allergies Allergy/AdvReac Type Severity Reaction Status Date / Time No Known Allergies Allergy Verified 03/16/25 23:20 Review of Systems Review of Systems: All systems reviewed & are unremarkable except as noted in HPI and below Exam Narrative: EXAMINATION OF ORGAN SYSTEMS/BODY AREAS: Constitutional: Vital signs per nursing GENERAL: Holding an emesis bucket HEAD: Normal with no signs of head trauma. EYES: EOMI, conjunctiva normal ENT: Hearing grossly intact LUNGS: Nonlabored breathing. HEART: [Regular rate and rhythm] ABD: [Soft], [nontender to palpation] EXT: Normal range of motion SKIN: [No rashes or lesions.] NEURO: [Alert and oriented x 3. Clear speech. No gross focal sensory or strength deficits.] PSYCH: Normal affect Course Vital Signs Vital signs: Vital Signs Temperature 98.0 F 03/16/25 20:25 Pulse Rate 82 03/16/25 20:25 Respiratory Rate 14 03/16/25 20:25 Blood Pressure 139/87 03/16/25 20:25 Pulse Oximetry 99 03/16/25 20:25 Oxygen Delivery Room Air 03/16/25 20:25 Temperature 98.0 F 03/16/25 20:25 Pulse Rate 78 03/17/25 00:16 Respiratory Rate 20 03/17/25 00:16 Blood Pressure 133/88 03/17/25 00:16 Pulse Oximetry 96 03/17/25 00:16 Oxygen Delivery Room Air 03/16/25 23:20 MDM - Nausea/Vomiting/Diarrhea MDM Narrative Medical decision making narrative: Patient presenting with vertigo, he is well-appearing currently and denies any symptoms when he is sitting very still, has normal neurologic exam, has since he has no risk factors for CVA I have very low concern for central cause of symptoms especially because his symptoms are completely positional. TMs normal. I did offer Hunter maneuver which he accepts, and I did also provide meclizine and Valium. I did re-evaluate the patient and he is now resting very comfortably, he states that he is now able to put his head in the positions that would have made him throw up prior, he is happy to go home with prescriptions for meclizine and Zofran as needed. I have let him know he needs to follow up his primary care doctor he knows return for any further issues especially the symptoms return. Discharge Plan Discharge Clinical Impression: Vertigo Patient Disposition: Home Condition: Stable Instructions: Benign Paroxysmal Positional Vertigo (ED) Additional Instructions: Please follow up with your PCP and try the medications as prescribed; and come back to the ER for any further issues. Patient Language: Ukrainian Prescriptions: New meclizine 25 mg tablet 25 mg PO TID PRN (Reason: dizziness or vertigo) Qty: 20 0RF meclizine 25 mg tablet 25 mg PO TID PRN (Reason: dizziness) Qty: 30 0RF ondansetron 4 mg tablet,disintegrating 4 mg PO Q8H PRN (Reason: nausea and vomiting) Qty: 10 0RF Follow-up/Referrals: PHYSICIAN NOT ON STAFF,NONSTAFF [Non-Staff] -
== END 2025-03-17 00:40 | disposition home or self-care (01) ==
PROVIDERS: Emergency Provider Emergency Medicine; PCP Internal Medicine
DX: R42 Dizziness and giddiness (principal)
CPT/HCPCS: 96372; 99283; A9270; J3360